=== PATIENT | male | born 1955 | race African-American/Black ===

== ENCOUNTER 2017-09-07 23:35 | Emergency (ER) | payer OTHER ==
[2017-09-07] MEDS ORDERED: MORPHINE SULFATE 10 MG/ML INJ IV ONE (23:53)
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
[2017-09-08] MEDS ORDERED: ACETAMINOPHEN 325 MG TABLET PO ONE (02:53)
[2017-09-08 03:52] VITALS: BP 115/75
== END 2017-09-08 03:52 | disposition home or self-care (01) ==
LOC: ER 23:35
DX: S46.912A Strain of unspecified muscle, fascia and tendon at shoulder and upper arm level, left arm, initial encounter (principal); M25.512 Pain in left shoulder; V89.2XXA Person injured in unspecified motor-vehicle accident, traffic, initial encounter
CPT/HCPCS: 99284; 96374; 71045; 73030; J2270

== ENCOUNTER 2017-09-08 04:23 | Emergency (ER) | payer OTHER ==
[2017-09-08 04:50] VITALS: BP 122/70
[2017-09-08] MEDS ORDERED: LIDOCAINE 5% (700 MG) TRANSDERMAL ADH..PATCH TP ONE (05:30)
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
== END 2017-09-08 06:20 | disposition home or self-care (01) ==
LOC: ER 04:23
DX: S46.912A Strain of unspecified muscle, fascia and tendon at shoulder and upper arm level, left arm, initial encounter (principal); V89.2XXA Person injured in unspecified motor-vehicle accident, traffic, initial encounter; F17.200 Nicotine dependence, unspecified, uncomplicated; I10 Essential (primary) hypertension
CPT/HCPCS: 99283